=== PATIENT | female | born 1945 | race Caucasian/White ===

== ENCOUNTER 2020-07-02 21:09 | Emergency (ER) | payer MEDICARE ==
[~2020-07-02] VITALS: Ht 157.5 cm; Wt 92.9 kg
[2020-07-02 21:10] VITALS: BP 160/78
[2020-07-02] MEDS ORDERED: DURE0.055 OP (21:29)
[2020-07-02] MEDS ORDERED: AUGM875T28 PO (21:29)
[2020-07-02] MEDS ORDERED: PREDOPD OP (21:29)
[2020-07-02] MEDS ORDERED: IBUP1TAB6 PO (21:30)
[2020-07-02] MEDS ORDERED: AMPICILLIN SOD/SULBACTAM SOD 3 GM in D5W MINI-BAG PLUS 100 ML IV ONE (23:45)
[2020-07-03] MEDS ORDERED: ISOVUE-370 76% 100ML VIAL As Ordered ONE (00:16)
== END 2020-07-03 01:36 | disposition left against medical advice (07) ==
LOC: M ED 21:09
DX: R22.0 Localized swelling, mass and lump, head (principal); Z79.2 Long term (current) use of antibiotics; Z79.52 Long term (current) use of systemic steroids; Z79.899 Other long term (current) drug therapy; Z88.5 Allergy status to narcotic agent

== ENCOUNTER → 2021-03-06 | Outpatient (CLI) | payer MEDICARE ==
[~2021-03-06] MED LIST: AUGM875T28 PO; D31000TA2 PO; DURE0.055 OP; EUTH75TA PO; IBUP1TAB6 PO; MAGN1CAP PO; PREDOPD OD; PREDOPD OP; PRES10CA2 PO
== END ==
LOC: M LABSMTC 09:40
PROVIDERS: ATTEND Anesthesiology
DX: Z01.818 Encounter for other preprocedural examination (principal); Z11.52 Encounter for screening for COVID-19

== ENCOUNTER 2021-03-11 08:54 | Day surgery (SDC) | payer MEDICARE ==
[~2021-03-11] VITALS: Ht 157.5 cm; Wt 92.0 kg
[~2021-03-11 08:54] MED LIST changes: +NS 1,000 ML IV ONE
[2021-03-11] MEDS ORDERED: LIDOCAINE 2% 100MG/5ML SDV (FOR ANES.) As Ordered ONE (09:57)
[2021-03-11] MEDS ORDERED: propofoL 200 MG/20 ML VIAL As Ordered ONE (09:57)
--- NOTE | 2021-03-11 10:00 | ROOR ---
Patient Name: Georgina Golden Procedure Date: 03/11/2021 9:42 AM Date of : 1945 Age: 75 Room: [facility] Gender: Female Note Status: Finalized Procedure: Total Colonoscopy to Cecum + Cold Snare Polypectomy Indications: Screening for colorectal malignant neoplasm, Colon cancer screening in patient at increased risk: Colorectal cancer in mother, Last colonoscopy: 2012 Providers: Jeremiah Storey MD Referring MD: Lesly Gomes DO Requesting Provider: Medicines: Monitored Anesthesia Care Complications: No immediate complications. Procedure: Pre-Anesthesia Assessment: - The heart rate, respiratory rate, oxygen saturations, blood pressure, adequacy of pulmonary ventilation, and response to care were monitored throughout the procedure. The Colonoscope was introduced through the anus and advanced to the cecum, identified by appendiceal orifice and ileocecal valve. The colonoscopy was performed without difficulty. The patient tolerated the procedure well. The quality of the bowel preparation was excellent. Findings: The perianal and digital rectal examinations were normal. Non-bleeding internal hemorrhoids were found during retroflexion. The hemorrhoids were small and Grade I (internal hemorrhoids that do not prolapse). Multiple small and large-mouthed diverticula were found in the recto-sigmoid colon, sigmoid colon and descending colon. A small polyp was found at 20 cm proximal to the anus. The polyp was sessile. The polyp was removed with a cold snare. Resection and retrieval were complete. The exam was otherwise without abnormality on direct and retroflexion views. Impression: - Non-bleeding internal hemorrhoids. - Diverticulosis in the recto-sigmoid colon, in the sigmoid colon and in the descending colon. - One small polyp at 20 cm proximal to the anus, removed with a cold snare. Resected and retrieved. - The examination was otherwise normal on direct and retroflexion views. - The exam was otherwise normal to the cecum. Recommendation: - Patient has a contact number available for emergencies. The signs and symptoms of potential delayed complications were discussed with the patient. Return to normal activities tomorrow. Written discharge instructions were provided to the patient. - High fiber diet. - Discharge patient to home. - Continue present medications. - Await pathology results. - Telephone GI clinic for pathology results in 1 week. - Return to referring physician. - Repeat colonoscopy in 5 years for surveillance based on pathology results. - The findings and recommendations were discussed with the patient's family. Procedure Code(s): --- Professional --- 05611, Colonoscopy, flexible; with removal of tumor(s), polyp(s), or other lesion(s) by snare technique Diagnosis Code(s): --- Professional --- Z12.11, Encounter for screening for malignant neoplasm of colon Z80.0, Family history of malignant neoplasm of digestive organs K64.0, First degree hemorrhoids K63.5, Polyp of colon K57.30, Diverticulosis of large intestine without perforation or abscess without bleeding CPT copyright 2019 [employer]. All rights reserved. The codes documented in this report are preliminary and upon junior recruiter review may be revised to meet current compliance requirements. Jeremiah Storey MD Jeremiah Storey MD 03/11/2021 9:59:41 AM Electronically signed by Jeremiah Storey MD Number of Addenda: 0 Note Initiated On: 03/11/2021 9:42 AM Estimated Blood Loss: Estimated blood loss: none.
[2021-03-11 10:20] VITALS: BP 166/86
== END 2021-03-11 10:31 | disposition home or self-care (01) ==
LOC: M OPP 08:54
PROVIDERS: ATTEND Internal Medicine Gastroenterology
DX: Z12.11 Encounter for screening for malignant neoplasm of colon (principal); Z80.0 Family history of malignant neoplasm of digestive organs; D12.6 Benign neoplasm of colon, unspecified; K57.30 Diverticulosis of large intestine without perforation or abscess without bleeding; K64.0 First degree hemorrhoids; K31.89 Other diseases of stomach and duodenum; Z79.899 Other long term (current) drug therapy; Z88.5 Allergy status to narcotic agent; Z87.891 Personal history of nicotine dependence